=== PATIENT | female | born 2000 | race African-American/Black ===

== ENCOUNTER 2021-08-15 07:11 | Day surgery (SDC) | payer OTHER ==
[~2021-08-15] VITALS: Ht 177.8 cm; Wt 75.0 kg
[2021-08-15 09:30] LABS: BASOPHILS % 0.7 % (0.0-2.0); EOSINOPHILS % 3.2 % (0.0-5.0); HEMATOCRIT. 38.4 % (36.0-48.0); HEMOGLOBIN. 12.2 g/dL (12.0-16.0); LYMPHOCYTES % 35.8 % (20.0-50.0); MEAN CORPUSCULAR HEMOGLOBIN 23.2 pg (28.0-32.0); MEAN CORPUSCULAR VOLUME 72.6 fL (81.0-99.0); MEAN PLATELET VOLUME 7.9 fl (7.4-10.4); NEUTROPHILS % 51.3 % (40.0-76.0); PLATELET 318 x1000/uL (130-400); RED BLOOD CELL COUNT 5.28 mill/uL (4.2-5.4); RED CELL DISTRIBUTION WIDTH 14.7 % (11.6-14.6)
[2021-08-15 09:36] LABS: CHLORIDE 109 mEq/L (98-107)
[2021-08-15] MEDS ORDERED: IBUP-2030 PO (09:36)
[2021-08-15 11:07] LABS: HCG SCREEN NEGATIVE
[2021-08-15 12:57] VITALS: BP 129/78
[2021-08-15] MEDS ORDERED: FENTANYL CITRATE/PF 50MCG/ML 2ML VIAL ONE (13:21)
[2021-08-15] MEDS ORDERED: MIDAZOLAM HCL 2 MG/2 ML VIAL ONE (13:21)
[2021-08-15] MEDS ORDERED: PROPOFOL 200MG/20ML VIAL IV ONE (13:56)
[2021-08-15] MEDS ORDERED: CEFAZOLIN SODIUM 1000MG/VIAL ONE (13:57)
[2021-08-15] MEDS ORDERED: ONDANSETRON HCL 4MG/2ML INJ ONE (13:57)
[2021-08-15] MEDS ORDERED: DEXAMETHASONE 4MG/ML 1ML VIAL ONE (13:57)
[2021-08-15] MEDS ORDERED: FENTANYL CITRATE/PF 50MCG/ML 2ML VIAL IV NR (14:15)
[2021-08-15] MEDS ORDERED: DEXT 5%/0.45% NACL KCL 20MEQ/L 1,000 ML IV SCH (14:15)
[2021-08-15] MEDS ORDERED: KETOROLAC 60MG/2ML VIAL IM NR (14:15)
[2021-08-15] MEDS ORDERED: HYDROMORPHONE HCL/PF 2MG/ML CPJ IV PRN (14:15)
[2021-08-15] MEDS ORDERED: ACETAMINOPHEN 325MG TABLET PO PRN (14:15)
[2021-08-15] MEDS ORDERED: ONDANSETRON HCL 4MG/2ML INJ IV NR (14:15)
[2021-08-15] MEDS ORDERED: ONDANSETRON HCL 4MG/2ML INJ IV PRN (20:00)
== END 2021-08-15 16:35 | disposition home or self-care (01) ==
LOC: ER 07:11 → OR 12:55 → CANBEDREQ 08-16 07:12
PROVIDERS: ATTEND Specialist
DX: N92.0 Excessive and frequent menstruation with regular cycle (principal); N93.9 Abnormal uterine and vaginal bleeding, unspecified; F41.9 Anxiety disorder, unspecified; F32.9 Major depressive disorder, single episode, unspecified; D64.9 Anemia, unspecified; Z79.899 Other long term (current) drug therapy; Z98.890 Other specified postprocedural states; Z20.822 Contact with and (suspected) exposure to COVID-19
CPT/HCPCS: 36415; 58558; 76830; 76856; 80053; 81025; 84703; 85025; 86850; 86900; 86901; 87426; 88305; 93005; 99285; J0690; J1100; J2250; J2405; J2704; J3010; J7030